=== PATIENT | female | born 1970 | race Caucasian/White ===

== ENCOUNTER 2019-01-03 17:54 | Emergency (ER) | payer MEDICAID ==
[~2019-01-03] VITALS: Ht 157.5 cm; Wt 56.7 kg
[2019-01-03 18:16] VITALS: Ht 157.5 cm; Wt 56.7 kg
[2019-01-03 18:53] LABS: BASOPHIL % 0.3 % (0-2); PLATELET COUNT 375 x10^3mcL (130-400)
[2019-01-03 18:56] LABS: RED CELL DISTRIBUTION WIDTH 19.3 % (11.5-14.5)
[2019-01-03 19:06] LABS: rbc morphology (normal/abnorm) ABNORMAL (NORMAL)
[2019-01-03 20:19] LABS: UA SPECIFIC GRAVITY >=1.030 (1.005-1.035); microscopic required? YES; urine erythrocyte 3+ (NEGATIVE)
[2019-01-03 22:17] VITALS: BP 117/74
== END 2019-01-03 22:17 | disposition home or self-care (01) ==
LOC: EDBD 17:54 → ED 17:54
PROVIDERS: Emergency Medicine
DX: N93.8 Other specified abnormal uterine and vaginal bleeding (principal); D50.9 Iron deficiency anemia, unspecified; N92.0 Excessive and frequent menstruation with regular cycle
CPT/HCPCS: 36415; J1885

== ENCOUNTER 2019-06-01 18:51 | Emergency (ER) | payer MEDICAID ==
[~2019-06-01] VITALS: Ht 157.5 cm; Wt 54.0 kg
[2019-06-01 19:07] VITALS: Ht 157.5 cm; Wt 54.0 kg
[2019-06-01 23:21] VITALS: BP 110/87
== END 2019-06-01 23:21 | disposition home or self-care (01) ==
LOC: ED 18:51
DX: J06.9 Acute upper respiratory infection, unspecified (principal); J02.9 Acute pharyngitis, unspecified